=== PATIENT | male | born 1930 | race African-American/Black ===

== ENCOUNTER → 2016-05-13 | Outpatient (CLI) | payer MEDICARE, BC ==
[2016-05-13 08:46] LABS: BASOPHILS % 0.5 % (0.0-2.0); EOSINOPHILS % 2.2 % (0.0-5.0); HEMATOCRIT. 35.5 % (42.0-52.0); HEMOGLOBIN. 11.6 g/dL (14.0-18.0); LYMPHOCYTES % 21.5 % (20.0-50.0); MEAN CORPUSCULAR HEMOGLOBIN 31.3 pg (28.0-32.0); MEAN CORPUSCULAR HGB CONC 32.7 g/dL (31.0-37.0); MEAN CORPUSCULAR VOLUME 95.8 fL (80.0-94.0); MEAN PLATELET VOLUME 8.6 fl (7.4-10.4); MONOCYTES % 8.5 % (2.0-8.0); NEUTROPHILS % 67.3 % (40.0-76.0); PLATELET 265 x1000/uL (130-400); WHITE BLOOD COUNT 9.2 x1000/uL (4.5-11.0)
[2016-05-13 09:03] LABS: ALBUMIN 3.3 g/dL (3.4-5.0); CALCIUM 9.1 mg/dL (8.5-10.1); CHLORIDE 110 mEq/L (98-107); INDEX HEMOLYSI 1 (1-3); INDEX ICTERIC 1 (1-4); INDEX LIPEMIC 1 (1-3)
[2016-05-13 09:09] LABS: ALANINE AMINOTRANSFERASE 19 IU/L (13-61); ANION GAP 13; CARBON DIOXIDE 25 mEq/L (21-32); UREA NITROGEN BLOOD 30 mg/dL (7-21); eGFR 39 mL/min (>60)
== END | disposition home or self-care (01) ==
LOC: LAB 08:08
PROVIDERS: ATTEND Internal Medicine Nephrology
DX: I12.9 Hypertensive chronic kidney disease with stage 1 through stage 4 chronic kidney disease, or unspecified chronic kidney disease (principal); N18.3 Chronic kidney disease, stage 3 (moderate)
CPT/HCPCS: 36415; 80053; 85025

== ENCOUNTER → 2016-06-24 | Outpatient (CLI) | payer MEDICARE, BC ==
[2016-06-24 09:31] LABS: CALCIUM 8.9 mg/dL (8.5-10.1)
== END | disposition home or self-care (01) ==
LOC: LAB 08:30
PROVIDERS: ATTEND Internal Medicine Nephrology
DX: I12.9 Hypertensive chronic kidney disease with stage 1 through stage 4 chronic kidney disease, or unspecified chronic kidney disease (principal); E11.22 Type 2 diabetes mellitus with diabetic chronic kidney disease; N18.3 Chronic kidney disease, stage 3 (moderate)
CPT/HCPCS: 36415; 80048; 80061; 83036

== ENCOUNTER → 2016-08-29 | Outpatient (CLI) | payer MEDICARE, BC ==
[2016-08-29 08:48] LABS: BASOPHILS % 0.4 % (0.0-2.0); EOSINOPHILS % 2.5 % (0.0-5.0); HEMATOCRIT. 32.2 % (42.0-52.0); HEMOGLOBIN. 10.9 g/dL (14.0-18.0); LYMPHOCYTES % 20.9 % (20.0-50.0); MEAN CORPUSCULAR HEMOGLOBIN 32.1 pg (28.0-32.0); MEAN CORPUSCULAR VOLUME 95.4 fL (80.0-94.0); MEAN PLATELET VOLUME 8.2 fl (7.4-10.4); MONOCYTES % 9.2 % (2.0-8.0); PLATELET 245 x1000/uL (130-400); RED BLOOD CELL COUNT 3.38 mill/uL (4.7-6.1); RED CELL DISTRIBUTION WIDTH 15.8 % (11.6-14.6)
[2016-08-29 09:12] LABS: CARBON DIOXIDE 23 mEq/L (21-32); CHLORIDE 113 mEq/L (98-107)
== END | disposition home or self-care (01) ==
LOC: LAB 08:23
PROVIDERS: ATTEND Internal Medicine Nephrology
DX: I10 Essential (primary) hypertension (principal)
CPT/HCPCS: 36415; 80053; 85025

== ENCOUNTER → 2016-09-30 | Outpatient (CLI) | payer MEDICARE, BC ==
[2016-09-30 08:53] LABS: BASOPHILS % 0.7 % (0.0-2.0); EOSINOPHILS % 3.2 % (0.0-5.0); HEMATOCRIT. 35.5 % (42.0-52.0); HEMOGLOBIN. 11.8 g/dL (14.0-18.0); LYMPHOCYTES % 26.6 % (20.0-50.0); MEAN CORPUSCULAR HEMOGLOBIN 31.5 pg (28.0-32.0); MEAN CORPUSCULAR VOLUME 94.9 fL (80.0-94.0); MEAN PLATELET VOLUME 8.5 fl (7.4-10.4); MONOCYTES % 7.6 % (2.0-8.0); NEUTROPHILS % 61.9 % (40.0-76.0); PLATELET 293 x1000/uL (130-400); RED BLOOD CELL COUNT 3.74 mill/uL (4.7-6.1); RED CELL DISTRIBUTION WIDTH 15.6 % (11.6-14.6)
[2016-09-30 09:17] LABS: CARBON DIOXIDE 24 mEq/L (21-32); CHLORIDE 109 mEq/L (98-107); HDL CHOLESTEROL 49 mg/dL (40-59); LDL CHOLESTEROL 128 mg/dL (5-100)
== END | disposition home or self-care (01) ==
LOC: LAB 08:26
PROVIDERS: ATTEND Internal Medicine Nephrology
DX: I12.9 Hypertensive chronic kidney disease with stage 1 through stage 4 chronic kidney disease, or unspecified chronic kidney disease (principal); N18.9 Chronic kidney disease, unspecified; E11.22 Type 2 diabetes mellitus with diabetic chronic kidney disease; R97.20 Elevated prostate specific antigen [PSA]
CPT/HCPCS: 36415; 80053; 80061; 83036; 84153; 85025

== ENCOUNTER → 2016-10-28 | Outpatient (CLI) | payer MEDICARE, BC ==
[2016-10-28 09:26] LABS: PHOSPHORUS 3.2 mg/dL (2.5-4.9)
== END | disposition home or self-care (01) ==
LOC: LAB 08:30
PROVIDERS: ATTEND Internal Medicine Nephrology
DX: I12.9 Hypertensive chronic kidney disease with stage 1 through stage 4 chronic kidney disease, or unspecified chronic kidney disease (principal); E11.22 Type 2 diabetes mellitus with diabetic chronic kidney disease; N18.9 Chronic kidney disease, unspecified
CPT/HCPCS: 36415; 80048; 83970; 84100

== ENCOUNTER → 2016-12-09 | Day surgery (SDC) | payer MEDICARE, BC | END | disposition home or self-care (01) | LOC: LAB 08:25 | PROVIDERS: ATTEND Internal Medicine Nephrology | DX: R00.1 Bradycardia, unspecified (principal); I10 Essential (primary) hypertension; E11.9 Type 2 diabetes mellitus without complications | CPT/HCPCS: 36415; 80048 ==